=== PATIENT | female | born 1975 | race Hispanic/Latino ===

== ENCOUNTER 2019-10-01 21:10 | Emergency (ER) | payer OTHER, SELFPAY ==
--- NOTE | ~2019-10-01 | XR_ITS ---
EXAMINATION: XR chest 2V DATE: 10/02/2019 00:17 INDICATION: Chest pain. TECHNIQUE: Frontal and lateral views of the chest were obtained. COMPARISON: CT abdomen and pelvis 10/02/2019 FINDINGS: The chest demonstrates clear lungs without pneumonia, pleural effusion, or pneumothorax. Th e heart size is normal. IMPRESSION: 1. No acute cardiopulmonary disease. Reviewed, dictated and finalized at location A. SPRING STRIP INSPECTOR
--- NOTE | ~2019-10-01 | CT_ITS ---
EXAMINATION: CT abdomen pelvis w con DATE: 10/02/2019 00:15 INDICATION: Right upper quadrant abdominal pain. TECHNIQUE: Computed tomography (CT) of the abdomen and pelvis was performed with 100 mL Omnipaque 350 intravenous contrast. Automated exposure control and iterative reconstruction technique were employe d. The dose-length product was 280.91 mGy-cm. COMPARISON: None. FINDINGS: The visualized portions of the lung bases demonstrate minimal atelectasis on the left. No p leural effusion. The heart size is normal. No pericardial effusion. The liver and spleen are normal. There are gallstones in the gallbladder, which is normal in size. The pancreas, adrenal glands, and l eft kidney are normal. There is a 4 mm cyst in right kidney. There are no dilated loops of bowel. The appendix is normal. There are no pathologically enlarged lymph nodes. There is no free intraperitone al fluid. The bones are unremarkable. IMPRESSION: 1. Cholelithiasis. No evidence of acute cholecystitis. Reviewed, dictated and finalized at location A. SECURITY PROFESSIONAL
[2019-10-01 21:29] VITALS: BP 97/38; PULSE 60; RESP 18; TEMP 36.5; O2SAT 100
--- NOTE | 2019-10-01 22:12 | ED.ABDPAIN ---
HPI - Abdominal Pain General Chief Complaint: Abdominal Pain Stated Complaint: post-op abd pain Time Seen by Provider: 10/01/19 21:52 Source: patient Mode of arrival: wheelchair Limitations: language barrier History of Present Illness HPI narrative: This is a 44 year old female that presents to the ER for RUQ abdominal pain x 1 hour. Reports sudden onset RUQ sharp abdominal pain. Associated with nausea and vomiting. Reports the pain radiates into her chest. Reports she had a colonoscopy yesterday at [facility]. Denies fever, or dysuria. Related Data Allergies Allergy/AdvReac Type Severity Reaction Status Date / Time No Known Allergies Allergy Verified 08/04/19 21:34 Review of Systems Review of Systems: Narrative: CONSTITUTIONAL: Denies fever CARDIOVASCULAR: Reports chest pain RESPIRATORY: Denies dyspnea. GASTROINTESTINAL: Reports abdominal pain, nausea, vomiting GENITOURINARY: Denies dysuria or hematuria. All systems reviewed & are unremarkable except as noted in HPI and below PMFSH Surgical History Surgical History (Updated 10/01/19 @ 22:19 by Siri Mobley PA-C) History of colonoscopy Social History Social History (Updated 08/04/19 @ 21:07 by SHEILA Yi) Smoking status: Never smoker Alcohol intake: never Substance use: never Gender identity (if verbalized by the patient): Female Exam Narrative: Exam Narrative: GENERAL: Well-appearing, well-nourished, and in mild acute distress due to pain HEAD: Normocephalic, atraumatic. EYES: EOMI. CHEST: Clear to auscultation. No respiratory distress. No wheezes rales or rhonchi HEART: Regular rate and rhythm. No murmur heard. Normal peripheral pulses. ABDOMEN: Soft, nondistended, normal active bowel sounds. Tender to palpation of the RUQ, without guarding EXTREMITIES: Normal range of motion. No edema. SKIN: Warm, dry, no rash. NEURO: No focal deficits. Alert and oriented x3. PSYCH: Normal mood and affect Course Consultations Consultation #1: Spoke with Dr. Fitzgerald about patient and work-up will follow-up in clinic Date: 10/02/19 Time: :20 Vital Signs Vital signs: Vital Signs Temperature 97.7 F 10/01/19 21:29 Pulse Rate 60 10/01/19 21:29 Respiratory Rate 18 10/01/19 21:29 Blood Pressure 97/38 L 10/01/19 21:29 Pulse Oximetry 100 10/01/19 21:29 Temperature 98.2 F 10/02/19 00:48 Pulse Rate 71 10/02/19 02:08 Respiratory Rate 16 10/02/19 02:08 Blood Pressure 119/69 10/02/19 02:08 Pulse Oximetry 100 10/02/19 02:08 MDM - Abdominal Pain MDM Narrative Medical decision making narrative: Patient presents the emergency department for right upper quadrant abdominal pain associated with nausea and vomiting. She is afebrile and nontoxic-appearing. Reports relief after IV fluids, Zofran, Tylenol and morphine. CBC with leukocytosis to 14.2. She did just have surgery yesterday (colonoscopy). Hemoglobin seems to be around her baseline. Metabolic panel is without acute changes, other than mild elevation in blood glucose. Lactic acid is not elevated. UA without evidence of infection. CT abdomen pelvis shows distended gallbladder with multiple gallstones including several near the neck. But no gross gallbladder inflammation to suggest acute cholecystitis. Her liver enzymes are normal. She is afebrile. Patient feeling much better and agrees to outpatient follow-up. Spoke with Dr. Fitzgerald about patient and work-up will follow-up in clinic Lab Data Attestation: I reviewed the patient's lab results. Result diagrams: 10/01/19 22:21 10/01/19 22:21 Labs: Lab Results 10/01/19 10/01/19 10/01/19 Range/Units 22:21 22:21 22:21 WBC 14.2 H (4.5-10.0) K/mm3 RBC 4.43 (4.2-5.4) M/mm3 Hgb 9.4 L (12.0-15.0) g/dL Hct 30.5 L (37.0-47.0) % MCV 68.8 L (80-100) fl MCH 21.2 L (26-34) pg MCHC 30.8 L (32-36) g/dl RDW 17.4 H (11.5-14.5) % Plt Count 375 (150-375) k/mm3
--- NOTE | 2019-10-01 22:13 | ECG_ITS ---
Measurements Intervals [place] Rate: 69 P: 35 SD: 167 QRS: 3 QRSD: 90 T: 31 QT: 430 QTc: 463 Interpretive Statements SINUS RHYTHM INCOMPLETE RIGHT BUNDLE BRANCH BLOCK BORDERLINE T WAVE ABNORMALITY- ANTERIOR LEADS BORDERLINE ECG Electronically Signed On 10-02-2019 6:46:45 HEALTHCARE TRANSLATOR by Cesar Khan D.O.
[2019-10-01 22:29] LABS: Basophils Absolute Auto 0.1 K/mm3 (0.0-0.1); Basophils Percent Auto 0.4 % (0.2-1.2); Eosinophils Absolute Auto 0.1 K/mm3 (0-0.3); Hematocrit 30.5 % (37.0-47.0); Hemoglobin 9.4 g/dL (12.0-15.0); Immature Granulocyte Absolute 0.05 K/mm3 (0.00-0.031); Immature Granulocyte Percent A 0.4 % (0-0.5); Lymphocytes Absolute Auto 3.08 K/mm3 (0.9-3.2); Lymphocytes Percent Auto 21.7 % (18.3-44.2); Mean Corpuscular HGB Conc 30.8 g/dl (32-36); Mean Corpuscular Hemoglobin 21.2 pg (26-34); Mean Corpuscular Volume 68.8 fl (80-100); Mean Platelet Volume 10.4 fl (7.4-10.4); Monocytes Absolute Auto 0.8 K/mm3 (0.1-0.6); Monocytes Percent Auto 5.6 % (2.6-8.5); Neutrophils Absolute Auto 10.1 K/mm3 (1.3-6.7); Neutrophils Percent Auto 70.9 % (45.5-73.1); Platelet Count Result 375 k/mm3 (150-375); Red Blood Count 4.43 M/mm3 (4.2-5.4); Red Cell Distribution Width 17.4 % (11.5-14.5); White Blood Count 14.2 K/mm3 (4.5-10.0)
[2019-10-01 22:39] LABS: Lactic Acid Reflex 1.2 mmol/L (0.7-2.1)
[2019-10-01 22:41] LABS: Alanine Aminotransferase 18 U/L (4-35); Albumin Level 4.6 g/dL (3.5-5.1); Alkaline Phosphatase 80 U/L (38-126); Aspartate Amino Transferase 24 U/L (14-36); Bilirubin,Total 0.3 mg/dL (0.2-1.3); Blood Urea Nitrogen 11 mg/dL (7-17); Calcium 8.9 mg/dL (8.4-10.2); Carbon Dioxide 24 mmol/L (22-30); Chloride 101 mmol/L (98-107); Estimated CRCL calculation 97 ml/min; Estimated Glomerular Filt Rate > 60; Glucose 151 mg/dL (65-105); Lipase 173 U/L (23-300); Potassium 3.7 mmol/L (3.4-5.0); Sodium 139 mmol/L (137-145)
[2019-10-01 22:52] LABS: Troponin I < 0.012 ng/mL (0.000-0.034)
[2019-10-01] MEDS: MORPHINE SULFATE 4 MG/ML INJ IV PUSH (23:10)
[2019-10-01] MEDS: ONDANSETRON INJ 4 MG/2 ML VIAL IV PUSH (23:10)
[2019-10-01] MEDS: SODIUM CHLORIDE 0.9% IV 1,000 ML 999 ML IV CONT (23:11)
[2019-10-02 00:48] VITALS: BP 115/66; PULSE 73; RESP 14; TEMP 36.8; O2SAT 99
[2019-10-02 00:54] VITALS: BP 115/66; PULSE 71; RESP 20; O2SAT 100
[2019-10-02 01:24] LABS: Add Urine Microscopic? YES; Appearance Urine Clear (Clear); Bilirubin Urine Negative (Negative); Blood Urine 1+ (Negative); Color Urine Yellow (Yellow); Glucose Urine UA Negative (Negative); Ketones Urine 1+ mg/dL (Negative); Leukocyte Esterase Ur Negative LEU/UL (Negative); Mucus Urine Heavy /lpf; Nitrate Urine Negative (Negative); Protein Urine Negative (Negative); RBC Urine 0-2 /hpf (0-2); Squamous Epithelial Cell Urine Few /hpf (Few); Urobilinogen Urine Negative mg/dL (<2.0)
[2019-10-02 02:08] VITALS: BP 119/69; PULSE 71; RESP 16; O2SAT 100
== END 2019-10-02 01:45 | disposition home or self-care (01) ==
PROVIDERS: Physician Assistant; Emergency Provider Emergency Medicine
DX: K80.20 Calculus of gallbladder without cholecystitis without obstruction (principal)
CPT/HCPCS: 36415; 71046; 74177; 80053; 81001; 81025; 83605; 83690; 84484; 85025; 93005; 96374; 96375; 99284; J0131; J2270; J2405; J7030; Q9967

== ENCOUNTER 2019-10-02 15:41 | Inpatient (IN) | payer OTHER, SELFPAY ==
--- NOTE | ~2019-10-02 | US_ITS ---
US right upper quadrant INDICATION: Acute cholecystitis. PROCEDURE: Realtime right upper abdominal ultrasound. COMPARISON: No prior studies for comparison. FINDINGS: The pancreas is normal without focal mass or pancreatic ductal dilation. Liver echotexture is normal without focal mass or intrahepatic biliary dilatation. There is normal directional flow i n the portal vein. There are gallstones with gallbladder wall thickening. Common bile duct measures 5.5 mm. Positive s onographic Morales's sign. IMPRESSION: 1: Cholelithiasis with gallbladder wall thickening. Findings suspicious for cholecystitis. Correlate clinically. Reviewed, dictated and finalized at location B. ING TACKER IMPRESSION: 1: Cholelithiasis with gallbladder wall thickening. Findings suspicious for cho lecystitis. Correlate clinically.
[2019-10-02 16:46] VITALS: BP 121/54; PULSE 70; RESP 8; TEMP 37.4; O2SAT 100
[2019-10-02 16:57] LABS: Basophils Absolute Auto 0.1 K/mm3 (0.0-0.1); Basophils Percent Auto 0.4 % (0.2-1.2); Hematocrit 30.6 % (37.0-47.0); Hemoglobin 9.2 g/dL (12.0-15.0); Immature Granulocyte Absolute 0.04 K/mm3 (0.00-0.031); Immature Granulocyte Percent A 0.3 % (0-0.5); Lymphocytes Absolute Auto 1.23 K/mm3 (0.9-3.2); Mean Corpuscular HGB Conc 30.1 g/dl (32-36); Mean Corpuscular Hemoglobin 20.6 pg (26-34); Mean Corpuscular Volume 68.5 fl (80-100); Mean Platelet Volume 10.1 fl (7.4-10.4); Monocytes Absolute Auto 0.8 K/mm3 (0.1-0.6); Monocytes Percent Auto 5.6 % (2.6-8.5); Neutrophils Absolute Auto 11.6 K/mm3 (1.3-6.7); Neutrophils Percent Auto 84.7 % (45.5-73.1); Platelet Count Result 370 k/mm3 (150-375); Red Blood Count 4.47 M/mm3 (4.2-5.4); Red Cell Distribution Width 17.4 % (11.5-14.5); White Blood Count 13.7 K/mm3 (4.5-10.0)
[2019-10-02 17:10] LABS: Alanine Aminotransferase 20 U/L (4-35); Albumin Level 4.7 g/dL (3.5-5.1); Alkaline Phosphatase 69 U/L (38-126); Aspartate Amino Transferase 28 U/L (14-36); Bilirubin,Total 0.8 mg/dL (0.2-1.3); Blood Urea Nitrogen 10 mg/dL (7-17); Calcium 9.1 mg/dL (8.4-10.2); Carbon Dioxide 24 mmol/L (22-30); Chloride 104 mmol/L (98-107); Estimated Glomerular Filt Rate > 60; Glucose 136 mg/dL (65-105); Lipase 43 U/L (23-300); Potassium 3.9 mmol/L (3.4-5.0); Sodium 139 mmol/L (137-145)
--- NOTE | 2019-10-02 18:34 | ED.ABDPAIN ---
HPI - Abdominal Pain General Chief Complaint: Abdominal Pain Stated Complaint: abd pain Time Seen by Provider: 10/02/19 18:16 Source: family and RN notes reviewed Mode of arrival: other Limitations: no limitations History of Present Illness HPI narrative: Pt is a 44 y/o female who presents to the ED with c/o severe RUQ abdominal pain that began yesterday. Pt's spouse was at bedside and translated for the pt. Pt was here at [facility] yesterday and was d/c home at 2 AM this morning. Pt had an abdominal and pelvis CT that showed gallstones. Pt's spouse states that he thought the pt was going to be admitted, but the pt was recommended to follow up with her PCP. Pt's spouse states that the pt had an appointment with her PCP today at 4, but her pain became too severe. Pt denies any aggravating or any alleviating factors. Pt's spouse states that she is unable to keep anything down. He notes that her pain was alleviated yesterday when the pt received Morphine while in the ED. Pt also reports vomiting, but denies a fever. Denies fever, MD elicited complaint: abdominal pain Onset (ago): day(s) (1) Pain Consistency: constant Location: RUQ Severity: severe Exacerbating factors: nothing Relieving factors: nothing Associated symptoms: vomiting Related Data Allergies Allergy/AdvReac Type Severity Reaction Status Date / Time No Known Allergies Allergy Verified 10/02/19 18:46 Review of Systems Review of Systems: All systems reviewed & are unremarkable except as noted in HPI and below Constitutional: Constitutional: Denies fever(s) Gastrointestinal: Gastrointestinal: Reports abdominal pain (RUQ) and Reports vomiting PMFSH Past Medical History Medical History (Updated 10/02/19 @ 20:39 by Kp Amezcua MD) Patient denies significant medical history Surgical History Surgical History (Updated 10/01/19 @ 22:19 by Siri Mobley PA-C) History of colonoscopy Social History Social History (Updated 08/04/19 @ 21:07 by SHEILA Yi) Smoking status: Never smoker Alcohol intake: never Substance use: never Gender identity (if verbalized by the patient): Female Exam Const: General: in distress mild and ill appearing Nutritional Appearance: well nourished HENMT: Mouth: Yes lip normal and Yes moist mucous membranes Eyes: Conjunctivae: conjunctivae normal Pupils: Equal, round and reactive pupils present Resp: Effort & Inspection: normal respiratory effort Auscultation: clear to auscultation bilaterally Cardio: Rate: regular rate Rhythm: regular rhythm Heart sounds: no murmurs GI: GI Palp: Yes abdominal tenderness (RUQ) and Yes Soft to palpation Auscultation: normal bowel sounds Back/Spine/Pelvis: Back: other (Full ROM) Skin: General skin exam: normal color, dry skin and other (warm) Neuro: General: patient oriented x3 and other (alert) Speech: normal speech Extrem: General: full ROM Psych: Mental Status: mental status grossly normal Affect: normal affect Course Consultations Consultation #1: Discussed case with Dr. Cantor (General Surgery). Date: 10/02/19 Time: 18:57 Vital Signs Vital signs: Vital Signs Temperature 37.4 C 10/02/19 16:46 Pulse Rate 70 10/02/19 16:46 Respiratory Rate 8 L 10/02/19 16:46 Blood Pressure 121/54 L 10/02/19 16:46 Pulse Oximetry 100 10/02/19 16:46 Temperature 36.8 C 10/02/19 19:56 Pulse Rate 80 10/02/19 19:56 Respiratory Rate 18 10/02/19 19:56 Blood Pressure 118/74 10/02/19 19:56 Pulse Oximetry 100 10/02/19 19:56 MDM - Abdominal Pain Differential Diagnosis Differential diagnosis: Likely other (acute cholecystitis) Lab Data Attestation: I reviewed the patient's lab results. Result diagrams: 10/02/19 16:52 10/02/19 16:52 Labs: Lab Results 10/02/19 10/02/19 Range/Units 16:52 16:52 WBC 13.7 H (4.5-10.0) K/mm3 RBC 4.47 (4.2-5.4) M/mm3 Hgb 9.2 L (12.0-15.0) g/dL Hct 30.6
[2019-10-02] MEDS: MORPHINE SULFATE 4 MG/ML INJ IV PUSH ×2 (19:17→22:04)
[2019-10-02] MEDS: SODIUM CHLORIDE 0.9% IV 1,000 ML 999 ML IV CONT (19:18)
[2019-10-02 19:47] VITALS: TEMP 36.8
[2019-10-02 19:56] VITALS: BP 118/74; PULSE 80; RESP 18; TEMP 36.8; O2SAT 100
--- NOTE | 2019-10-02 21:50 | ADMGEN ---
This patient, Mahsa Edwards, was admitted to 2 Medical Room 261-01. Patient/family oriented to hospital policies and general routines including ID bracelet, bed and alarms, visiting hours, pain management, procedures, bathroom and other care routines, personal items, smoking policy, room service/diet, and visiting hours. Valuables list has been completed. Information on how to activate the Rapid Response Team has been discussed. Patient/Family are encouraged to report perceived risks to care and to ask questions if they do not understand what they are told or what they should do.
[2019-10-02 22:00] VITALS: BP 124/72; PULSE 88; RESP 21; TEMP 36.5; O2SAT 100; BMI 25.6
[2019-10-02] MEDS: LACTATED RINGERS 1,000 ML 125 ML IV CONT (22:02)
[2019-10-03] VITALS (12 sets, daily range): BP systolic 87–115; BP diastolic 44–66; PULSE 76–97; RESP 16–20; TEMP 36.3–37.6; O2SAT 95–100; BMI 25.6
[2019-10-03] MEDS: MORPHINE SULFATE 4 MG/ML INJ IV PUSH ×2 (01:46→08:08)
[2019-10-03] MEDS: LACTATED RINGERS 1,000 ML 125 ML IV CONT (06:09)
--- NOTE | 2019-10-03 12:03 | PM.IMHP ---
H&P: HPI History of Present Illness Chief complaint: acute cholecystitis Narrative: Mahsa Patterson is a 44 year old female who presented to the ED for the 2nd time in 24 hours with the same complaints. She has been experiencing RUQ pain for 3 days. She is having nausea and vomiting. When she went to the ED yesterday morning, she was found to have cholelithiasis on CT and had a slightly elevated WBC. She was sent home, but once her pain meds wore off, she began having severe pain again. This time, she couldn't keep any food or water down without vomiting. She has never had symptoms like this before. She did recently have a colonoscopy for anemia and was found to have several polyps but no other abnormalities. Review of Systems Review of Systems: All systems reviewed & are unremarkable except as noted in HPI and below Eyes: Eyes: Denies change in vision ENT: Denies hearing loss, Denies neck pain and Denies sore throat Cardiovascular: Cardiovascular: Denies chest pain and Denies dyspnea Respiratory: Respiratory: Denies cough, Denies dyspnea and Denies wheezing Gastrointestinal: Gastrointestinal: Reports as per HPI Genitourinary: Genitourinary: Denies hematuria and Denies dysuria Musculoskeletal: Musculoskeletal: Denies arthralgias, Denies joint swelling and Denies neck pain Allergic/Immunologic: Allergic/Immunologic: Denies wheezing PMFSH Past Medical History Medical History Patient denies significant medical history Surgical History Surgical History History of colonoscopy Social History Social History Smoking status: Never smoker Alcohol intake: never Substance use: never Gender identity (if verbalized by the patient): Female Spiritual care concerns: No Meds Home Medications and Allergies Home Medications Medication Instructions Recorded Confirmed Type No Home Medications 10/02/19 10/02/19 History Allergies Allergy/AdvReac Type Severity Reaction Status Date / Time No Known Allergies Allergy Verified 10/02/19 18:46 Vital Signs Vital Signs - 24 hr 10/02/19 16:46 10/02/19 19:47 10/02/19 19:56 Temperature 37.4 C 36.8 C 36.8 C Pulse Rate 70 80 Respiratory Rate 8 L 18 Blood Pressure 121/54 L 118/74 Pulse Oximetry 100 100 10/02/19 22:00 10/03/19 06:00 Temperature 36.5 C 36.9 C Pulse Rate 88 93 Respiratory Rate 21 H 20 Blood Pressure 124/72 111/66 Pulse Oximetry 100 98 Exam Const: General: alert; No acute distress Orientation/consciousness: patient oriented x3 Limitations: no limitations HENMT: Head: normocephalic and atraumatic Ears: hearing grossly normal bilaterally General nose exam: Normal external nose present and Normal nares present Mouth: Yes Normal oral and palatal mucosa present and Yes moist mucous membranes Eyes: General: appearance normal, both eyes and all related structures Conjunctivae: conjunctivae normal Sclera: sclerae normal Pupils: Equal, round and reactive pupils present EOM: EOMs intact bilaterally Neck: Neck: normal visual inspection, full ROM, no lymphadenopathy, supple and no JVD Lymphatic: no lymphadenopathy noted Chest: Chest palpation & inspection: normal inspection of the chest Resp: Effort & Inspection: normal respiratory effort and able to speak in complete sentences Auscultation: clear to auscultation bilaterally Percussion: percussion normal Cardio: Jugular venous distension: no JVD Rate: regular rate Rhythm: regular rhythm Heart sounds: S1 normal heart sound present and S2 normal heart sound present Peripheral pulses: Peripheral pulses 2+ throughout GI: Inspection: normal to inspection GI Palp: Yes abdominal tenderness, Yes Soft to palpation, Yes Tenderness to palpation present (GI) (RUQ), No Guarding due to palpation present (GI), No Ann
[2019-10-03] MEDS: LACTATED RINGERS 1,000 ML 30 ML IV CONT ×2 (17:05→19:29)
--- NOTE | 2019-10-03 17:22 | WPDANESEPPF ---
Anes - Initial Pre Proc Eval Procedure: Operation Date: 10/03/19 16:00 Proposed Procedures p Laparoscopic Cholecystectomy, Possible Open - Lorne Cantor DO Date/Time: 10/03/19 17:22 Surgeon: Lorne Cantor DO Pre Op Diagnosis: acute cholecystitis Patient Data Age: 44 Gender: F Height: 5 ft Weight: 59.6 kg Last Vital Signs Temp 37.6 C 10/03/19 16:45 Pulse 84 10/03/19 16:45 Resp 16 10/03/19 14:00 BP 115/65 10/03/19 16:45 Pulse Ox 95 10/03/19 16:45 Allergies Allergy/AdvReac Type Severity Reaction Status Date / Time No Known Allergies Allergy Verified 10/02/19 18:46 Home Medications Medication Instructions Recorded Confirmed Type No Home Medications 10/02/19 10/02/19 History Laboratory Tests 10/03/19 08:15 Blood Type B Positive Antibody Screen Negative Patient hx anesthesia problems: none Family hx anesthesia problems: none PMFSH Past Medical History Medical History Patient denies significant medical history Surgical History Surgical History History of colonoscopy Social History Social History Smoking status: Never smoker Alcohol intake: never Substance use: never Gender identity (if verbalized by the patient): Female Spiritual care concerns: No Anes - Eval Final PreProcedure Day of Procedure 10/03/19 17:22 Patient weight: normal Heart: regular rate and rhythm Lungs: clear to auscultation Airway: Mallampati scale class II Neurological: alert and oriented Last oral intake: >/= 8 hours ASA classification: II Emergent: yes Anesthetic plan: proceed Anesthesia type and monitoring: general ETT and standard monitoring Informed Consent: The patient's anesthetic plan and its attendant risks and benefits were discussed with the patient/family/POA. Questions were solicited and answers provided to the satisfaction of the patient/family/POA.
[2019-10-03] MEDS: BUPIVACAINE/EPINEPHRINE 0.5% 30 ML VIAL INFILTRATE (18:35)
--- NOTE | 2019-10-03 19:14 | PM.PROC ---
Procedure Note - Detailed Date of procedure: 10/03/19 Pre-op diagnosis: acute calculous cholecystitis Post-op diagnosis: same Procedure performed: Laparoscopic Cholecystectomy Description of procedure: Procedure as well as risks, benefits, and alternatives were discussed with patient. Written consent was obtained and placed in chart prior to procedure. The patient was brought back to surgical suite. Patient was placed in supine position on operating table. Time-out was done to confirm patient and procedure. Patient was then intubated by the anesthesia department. Abdomen was prepped and draped in sterile fashion using chlorhexidine prep. 0.5% bupivacaine with epinephrine was infiltrated at each site of incision. An 11 millimeter vertical incision was made at the inferior portion of the umbilicus using a 15 blade scalpel. Blunt dissection was carried down to the linea alba. The linea alba was then incised using a 15 blade scalpel. The peritoneum was then bluntly entered. An 11 millimeter trocar was inserted and cabon dioxied insuflation was used to create a pneumoperitoneum. The camera was inserted and the abdomen was inspected. The patient was placed in reverse Trendelenberg position and rotated slightly to the left. A 5 millimeter incision was made in the epigastric region, and a 5 millimeter trocar was inserted under direct visualization. Two 5 millimeter incisions were made in the right upper quadrant, and two 5 millimeter trocars were inserted under direct visualization. The gallbladder was identified and grasped at the fundus and retracted superiorly. It was then grasped at the infundibulum retracted laterally. Careful dissection around the neck of the gallbladder was performed using blunt dissection with a [place] grasper and hook electrocautery. The cystic duct was identified, and a window was created behind it. The cystic artery was also identified and a window was created behind it. The critical view of safety was identified, visualizing the cystic duct running directly into the neck of the gallbladder, and the cystic artery running directly into the wall of the gallbladder. A 5 millimeter clip spine nurse was then used to place 2 clips proximally and 1 clip distally on both the cystic duct and cystic artery. They were then both transected using endoscopic scissors. Once safely away from the augusto hepatitis, the gallbladder was dissected free from the liver bed using hook electrocautery. Hemostasis was achieved along the way. The gallbladder was removed completely and then removed through the umbilical port. The liver bed was then inspected. Hemostasis appeared adequate, and our clips appeared secure. The area was gently irrigated with sterile saline. No other abnormalities were seen. The patient was flattened out in bed, and 1 final inspection was made around the abdominal cavity. The ports were then removed under direct visualization, the camera was removed, and the pneumoperitoneum was released. The fascia of the umbilical incision was approximated using an 0 Vicryl [id number] suture. The skin of the incisions was approximated using 4-0 Monocryl subcuticular sutures. Exofin glue was applied on top. The patient was then awakened from anesthesia, extubated, and transferred to recovery. Anesthesia: GETA and local (0.5% bupivicaine with epinephrine) Surgeon: Lorne Cantor DO Estimated blood loss (mL): 20 Pathology: yes Complications: No immediate complications Condition: stable Disposition: floor Findings: This is a 44-year-old woman who presented to the emergency department last night with complaints of right upper quadrant pain with nausea and vomiting. She has been having constant pain for the past 3 days. She was in the ER several hours earlier and pain was controlled with some IV pain medications. She was discharged home, but once the pain meds wore off she continued to have constant pain and could not keep food or kenia
[2019-10-03] MEDS: LACTATED RINGERS 1,000 ML 100 ML IV CONT (21:10)
[2019-10-04 02:09] VITALS: BP 99/56; PULSE 72; RESP 18; TEMP 36.2; O2SAT 98
[2019-10-04 05:33] LABS: Hematocrit 24.5 % (37.0-47.0); Hemoglobin 7.5 g/dL (12.0-15.0); Mean Corpuscular HGB Conc 30.6 g/dl (32-36); Mean Corpuscular Hemoglobin 20.8 pg (26-34); Mean Corpuscular Volume 68.1 fl (80-100); Mean Platelet Volume 10.4 fl (7.4-10.4); Platelet Count Result 264 k/mm3 (150-375); Red Cell Distribution Width 17.3 % (11.5-14.5); White Blood Count 11.4 K/mm3 (4.5-10.0)
[2019-10-04 05:57] LABS: Blood Urea Nitrogen 6 mg/dL (7-17); Calcium 8.4 mg/dL (8.4-10.2); Carbon Dioxide 25 mmol/L (22-30); Chloride 106 mmol/L (98-107); Estimated CRCL calculation 96 ml/min; Estimated Glomerular Filt Rate > 60; Glucose 124 mg/dL (65-105); Potassium 3.9 mmol/L (3.4-5.0); Sodium 137 mmol/L (137-145)
[2019-10-04 06:51] VITALS: BP 106/51; PULSE 65; RESP 16; TEMP 36.3; O2SAT 97
--- NOTE | 2019-10-04 08:25 | WPDANESPN ---
Anes - Prog Note Post-Op Date/Time: 10/04/19 08:25 Cardiovascular status: normal Respiratory status: normal Airway patency: baseline Mental status: baseline Post-Op hydration status: normal Vital Signs: Last Vital Signs Temp 36.3 C L 10/04/19 06:51 Pulse 65 10/04/19 06:51 Resp 16 10/04/19 06:51 BP 106/51 L 10/04/19 06:51 Pulse Ox 97 10/04/19 06:51 I/O: Intake & Output 10/03/19 10/04/19 10/04/19 23:59 07:59 15:59 Intake Total 1150 350 Output Total 600 1350 Balance 550 -1000 Laboratory Tests 10/04/19 05:18 10/04/19 05:18 10/03/19 10/04/19 10/04/19 08:15 05:18 05:18 WBC 11.4 H RBC 3.60 L Hgb 7.5 L Hct 24.5 L MCV 68.1 L MCH 20.8 L MCHC 30.6 L RDW 17.3 H Plt Count 264 MPV 10.4 Sodium 137 Potassium 3.9 Chloride 106 Carbon Dioxide 25 BUN 6 L Creatinine 0.50 L Estim Creat Clear Calc 96 Estimated GFR > 60 Glucose 124 H Calcium 8.4 Blood Type B Positive Antibody Screen Negative Post-procedural complaints: none Patient Feedback: Patient satisfied with anesthetic care.
[2019-10-04 10:00] VITALS: BP 110/64; PULSE 70; RESP 16; TEMP 36.4; O2SAT 98
[2019-10-04 10:47] VITALS: O2SAT 96
[2019-10-04] MEDS: IBUPROFEN 600 MG TABLET PO (12:25)
--- NOTE | 2019-10-04 13:16 | PM.DS ---
DS: Diagnosis Admitting Diagnosis Admitting Diagnosis: Acute cholecystitis Discharge Diagnosis (1) Cholelithiasis and acute cholecystitis without obstruction: Code(s): K80.00 - Calculus of gallbladder with acute cholecystitis without obstruction Status: Acute (2) Iron (Fe) deficiency anemia: Code(s): D50.9 - Iron deficiency anemia, unspecified Status: Acute DS: Summary Time Spent with Patient Time attestation: Total time spent providing and/or coordinating discharge services: Patient presented to the emergency room on October 01 with severe right upper quadrant abdominal pain and vomiting. She had tenderness in the right upper quadrant as well. She had an elevated white count of over 13,000. her liver functions and lipase were normal. CT scan showed gallstones. A right upper quadrant ultrasound done the next morning showed gallstones with gallbladder wall thickening suggestive of acute cholecystitis. The patient was taken to surgery on 10/03/[address] Groves and underwent laparoscopic cholecystectomy. Her gallbladder was severely inflamed and nathan full of stones. She was continued on IV Zosyn. She had a colonoscopy just the day before her gallbladder symptoms started. They had found some polyps. She has iron deficiency anemia and it was thought the polyps were the source. Preoperatively her hemoglobin hematocrit were 9.2 and 30.6. On 10/04/2019 her hemoglobin was 7.5 and hematocrit 24.5. She had received considerable amount of IV fluid during her hospital stay. She is hemodynamically stable. She desires to go home today and is discharged now in good condition. She will go home on Augmentin, analgesics, and ferrous sulfate. Repeat CBC will be done on Sunday October 06, 2019. Exam Const: General: comfortable and no acute distress; No confusion Orientation/consciousness: patient oriented x3 and No confusion GI: GI Palp: Yes Soft to palpation, Yes Tenderness to palpation present (GI), No Guarding due to palpation present (GI) and No Rebound tenderness present Auscultation: normal bowel sounds Neuro: General: patient oriented x3, no focal motor deficits and No confusion Extrem: General: no calf tenderness and no edema Psych: Affect: normal affect Insight: Good insight present (Psych) Judgement: Good judgement present (Psych) DS: Data Data Completed and Pending Pending studies at discharge: Pending at discharge 10/03/19 18:27 Surgical [PTH] Routine Labs on day of discharge: Labs from last 24 hours 10/04/19 10/04/19 05:18 05:18 WBC 11.4 H RBC 3.60 L Hgb 7.5 L Hct 24.5 L MCV 68.1 L MCH 20.8 L MCHC 30.6 L RDW 17.3 H Plt Count 264 MPV 10.4 Sodium 137 Potassium 3.9 Chloride 106 Carbon Dioxide 25 BUN 6 L Creatinine 0.50 L Estim Creat Clear Calc 96 Estimated GFR > 60 Glucose 124 H Calcium 8.4 Discharge Plan Discharge Attending physician on discharge: Lorne Groves Discharging Clinician: Lam Fitzgerald Anticipated Discharge Date/Time: 10/04/19 13:12 Patient Disposition: Home, Self-Care Activity: other - see discharge instructions Diet: low fat and other - see discharge instructions Wound Care Instructions: other - see discharge instructions Discharge Instructions: DISCHARGE INSTRUCTION SHEET FOR HERNIA, GALLBLADDER AND APPENDIX SURGERIES DR. GROVES PATIENT TO TAKE HOME 1. May shower in 24 hours, no soaking in bath x 2weeks. 2. Call office for: Wound increasingly painful or bleeding Vomiting Fever of greater than 101 degrees 3. If no bowel movement for three days, take 1 oz. (30 ml) Milk of Magnesia or MiraLax 17g 1 to 2 times daily. 4. No heavy lifting > 10-15 pounds x 2 weeks for laparoscopic cholecystectomy or appendectomy. 5. No driving for 3 days or while taking narcotic pain medications. 6. Ice to surgical site for 48 hours (30 min on, then 30 min off).
[2019-10-04 14:00] VITALS: BP 110/64; PULSE 66; RESP 18; TEMP 36.3; O2SAT 99
== END 2019-10-04 14:30 | disposition home or self-care (01) | DRG 263 ==
LOC: ANHED 19:02 → ANH2MED 20:39
PROVIDERS: Admitting Provider Surgery; Emergency Provider Emergency Medicine; Visit Provider Surgery
PROC: 0FT44ZZ Resection of Gallbladder, Percutaneous Endoscopic Approach (ICD-10-PCS; CPT 47562; principal; 2019-10-03 16:00)
DX: K80.00 Calculus of gallbladder with acute cholecystitis without obstruction (principal); D50.9 Iron deficiency anemia, unspecified
CPT/HCPCS: 36415; 76705; 80048; 80053; 83690; 85025; 85027; 86850; 86900; 86901; 88304; 96365; 96375; 99285; A9270; J0131; J0330; J1100; J2250; J2270; J2405; J2543; J2704; J3010; J7030; J7120

== ENCOUNTER 2020-02-25 08:59 | Observation (INO) | payer OTHER, SELFPAY ==
[2020-02-25] VITALS (11 sets, daily range): BP systolic 93–134; BP diastolic 45–73; PULSE 18–84; RESP 12–99; TEMP 35.9–36.7; O2SAT 64–100; BMI 26.4
--- NOTE | 2020-02-25 09:07 | ADMGEN ---
This patient, Mahsa Patterson, was admitted to 2 Medical Room 261-01. Patient/family oriented to hospital policies and general routines including ID bracelet, bed and alarms, visiting hours, pain management, procedures, bathroom and other care routines, personal items, smoking policy, room service/diet, and visiting hours. Valuables list has been completed. Information on how to activate the Rapid Response Team has been discussed. Patient/Family are encouraged to report perceived risks to care and to ask questions if they do not understand what they are told or what they should do.
[2020-02-25] MEDS: LACTATED RINGERS 1,000 ML 100 ML IV CONT ×2 (10:14→18:13)
[2020-02-25] MEDS: ONDANSETRON INJ 4 MG/2 ML VIAL IV PUSH ×3 (10:16→19:36)
--- NOTE | 2020-02-25 10:58 | WPDANESEPPF ---
Anes - Initial Pre Proc Eval Procedure: Operation Date: 02/25/20 14:00 Proposed Procedures p Laparoscopic Appendectomy, possible open - Axel Sosa MD Date/Time: 02/25/20 10:58 Surgeon: Axel Sosa MD Pre Op Diagnosis: Acute uncomplicated appendicitis Patient Data Age: 45 Gender: F Height: Weight: Allergies Allergy/AdvReac Type Severity Reaction Status Date / Time No Known Allergies Allergy Verified 11/10/19 12:11 Patient hx anesthesia problems: none Family hx anesthesia problems: none PMFSH Past Medical History Medical History (Updated 02/25/20 @ 13:27 by Justin Barnes DO) Iron (Fe) deficiency anemia Migraine Surgical History Surgical History (Updated 02/25/20 @ 12:07 by SHEILA Guerra) History of colonoscopy History of laparoscopic cholecystectomy 10/03/2019 for acute calculous cholecystitis History of tubal ligation Family History Family History Other No significant family history Social History Social History Social History: The patient lives with her children. She is , but they live separately. She would like her , Ned Coker, to be her medical decision maker. Smoking status: Never smoker Second hand tobacco smoke exposure: No Alcohol intake: never Substance use: never Substance use type: does not use Living arrangements: with family Gender identity (if verbalized by the patient): Female Sexual Orientation (if Verbalized by the Patient): Straight or Heterosexual Spiritual care concerns: No Anes - Eval Final PreProcedure Day of Procedure 02/25/20 10:58 Patient weight: normal Heart: regular rate and rhythm Lungs: clear to auscultation and normal air movement Airway: Mallampati scale class III Neurological: alert and oriented Last oral intake: >/= 8 hours ASA classification: II Emergent: no Anesthetic plan: proceed Anesthesia type and monitoring: general ETT and standard monitoring Informed Consent: The patient's anesthetic plan and its attendant risks and benefits were discussed with the patient/family/POA. Questions were solicited and answers provided to the satisfaction of the patient/family/POA.
--- NOTE | 2020-02-25 11:17 | PM.IMHP ---
H&P: HPI History of Present Illness Chief complaint: Acute uncomplicated appendicitis Narrative: Mahsa Patterson is a 45 year old female who presented to [facility] for evaluation of right lower quadrant abdominal pain. She reports that her abdominal pain started suddenly 3 days ago and has progressively worsened. The pain remained localized in the right lower quadrant and had no alleviating factors. She developed nausea with one episode of vomiting yesterday and has had a poor appetite. She reports nearly no oral intake over the past 24 hours. Denies fevers or chills. The pain continued to worsen and became more severe last night, which is when she decided to present to the ED for further evaluation. Work-up in the ED showed leukocytosis with a white blood cell count of 12,700. CT scan showed dilated appendix up to 9.6 mm with some mild inflammatory stranding at the base, concerning for early acute appendicitis. No perforation or abscess formation noted. Also seen on the CT is gastric wall thickening that could be due to nondistention or gastritis. Labs were reviewed and unremarkable, other than mentioned. There was a negative urine test on [facility]'s records. Our service was contacted by the [facility] ER physician and the patient is now a direct admission to [facility] for surgical evaluation of the possible acute appendicitis. The patient is now being seen on the medical floor with the Souleymane dye jig operator present due to her being Maltese-speaking. She reports her abdominal pain has improved since being given the Morphine, but it is still present in the RLQ. Reports bloating and nausea. Denies a change in her bowel habits. Reports last bowel movement was yesterday afternoon and loose. Denies a history of upper endoscopy or gastritis. No chronic nausea or abdominal pain. Denies any upper abdominal pain. Denies hematuria, dysuria, or urinary frequency. No other complaints at this time. Review of Systems Constitutional: Constitutional: Reports as per HPI, Denies chills, Denies excessive sweating, Denies fatigue, Denies fever(s), Denies headache(s), Reports poor appetite and Denies weakness Eyes: Eyes: Denies change in vision and Denies loss of vision ENT: Reports Normal hearing present, Denies dizziness and Denies headache(s) Cardiovascular: Cardiovascular: Denies chest pain, Denies syncope, Denies leg edema, Denies lightheadedness, Denies radiating jaw, neck or arm pain and Denies dyspnea Respiratory: Respiratory: Denies cough, Denies dyspnea and Denies wheezing Gastrointestinal: Gastrointestinal: Reports as per HPI, Reports no additional gastrointestinal complaints, Reports abdominal pain (RLQ), Denies melena, Reports bloating, Denies hematochezia, Denies change in bowel habits, Denies diarrhea, Reports nausea and Reports vomiting Genitourinary: Genitourinary: Reports no additional female genitourinary complaints, Denies hematuria and Denies dysuria Musculoskeletal: Musculoskeletal: Denies deformity, Denies joint swelling, Denies radiating pain into limb and Denies tingling Integumentary/Breasts: Skin/Breast: Denies pruritus, Denies wounds and Denies jaundice Neurologic: Reports Normal hearing present, Denies confusion, Denies dizziness, Denies syncope, Denies headache(s), Denies loss of vision, Denies tingling, Denies tremor(s) and Denies weakness Psychiatric: Psychiatric: Denies anxiety, Denies confusion and Denies depression Endocrine: Endocrine: Denies cold intolerance, Denies excessive sweating, Denies fatigue and Denies heat intolerance Hematologic/Lymphatic: Hematologic/Lymphatic: Denies easy bleeding and Denies easy bruising PMFSH Past Medical History Medical History Iron (Fe) deficiency anemia Surgical History Surgical History (Updated 02/25/20 @ 12:07 by SHEILA Guerra) History of colonoscopy History of laparoscopic cholecystectomy 10/02
[2020-02-25] MEDS: LACTATED RINGERS 1,000 ML 30 ML IV CONT ×2 (13:20→16:14)
--- NOTE | 2020-02-25 14:24 | SUR.PREOP ---
0050-CONNECTION MADE VIA [employer] WITH [employer], #[id number] IN ORDER TO FOR NURSING STAFF AND ANESTHESIOLOGIST TO COMMUNICATE WITH PT.
[2020-02-25] MEDS: BUPIVACAINE/EPINEPHRINE 0.5% 10 ML VIAL INFILTRATE (15:44)
--- NOTE | 2020-02-25 16:10 | PM.PROC ---
Procedure Note - Detailed Date of procedure: 02/25/20 Pre-op diagnosis: Acute uncomplicated appendicitis Post-op diagnosis: same Procedure performed: Laparoscopic Appendectomy Description of procedure: The patient was seen in her hospital Room. The risks, benefits, complications, treatment options, and expected outcomes were discussed with the patient and/or family. The possibilities of reaction to medication, pulmonary aspiration, perforation of viscus, bleeding, recurrent infection, finding a normal appendix, the need for additional procedures, failure to diagnose a condition, and creating a complication requiring transfusion or operation were discussed. There was concurrence with the proposed plan and informed consent was obtained. The site of surgery was properly noted/marked. The patient was taken to Operating Room, and a time out was preformed which identified this as the proper patient, and the procedure verified as laparoscopic appendectomy, possible open. The patient was placed in the supine position and general anesthesia was induced, along with placement of orogastric tube, SCD hose, and a Rust catheter. The abdomen was prepped and draped in a sterile fashion. Because the patient had had previous surgeries the Escalante cannula technique was utilized. To do this I made an incision in the umbilical area vertically and carried this down to the midline fascia. Under direct vision the midline fascia was incised and the peritoneum entered under direct vision after placing 2 sutures of 0 Vicryl in the fascia on either side of midline. The Escalante cannula was then slid into place into the peritoneum under direct vision. The pneumoperitoneum was then established to steady pressure of 14 mm Hg. A 12 mm laparoscopic port was placed through a transverse suprapubic incision. An additional 5 mm cannula was then placed in the left upper quadrant of the abdomen under direct vision. A careful evaluation of the entire abdomen was carried out. was noted that the patient had omentum stuck to the underside of her previous umbilical incision site right where the Escalante was placed. Prior to further surgery we used the hook cautery to take this down the bowel was well away from the area and hemostasis was achieved with the cautery as we released the adhesions holding the omentum to the underside of the umbilical area. This allowed us more room to see an work. The patient was placed in Trendelenburg and left lateral decubitus position. The small intestines were retracted in the cephalad and left lateral direction away from the pelvis and right lower quadrant. The patient was found to have an enlarged and inflamed appendix that was extending into the right lower quadrant with the tip pointing toward the feet. There was no evidence of perforation. The appendix was carefully dissected. Once it was free a 45 mm ethicon endogastroentestinal stapler with a vascular load was placed across the mesoappendix. This was fired and hemostasis was checked along the staple line and appeared to be adequate. For this patient, this divided the entire mesoappendix and we were able to proceed immediately to stapling off the appendix at it's junction with the cecum. The appendix was then divided at its base using the same 45 mm stapler with a 3.5 mm bowel wall load. Minimal appendiceal stump was left in place. There was no evidence of bleeding, leakage, or complication after division of the appendix at its junction with the cecum.. The appendix was then placed in an endobag which had been brought through the 12 mm suprapubic port site. The appendix and the bag were then extracted through this larger port site in the suprapubic position. After closing the suprapubic site with the Santos cone I then watched as the gas escape from the abdomen we pushes much gas as possible just after removing the 5 mm port in the left upper quadrant. There was no bleeding from the underside of this port.
--- NOTE | 2020-02-25 16:17 | SUR.OPER ---
Urine outpute 400 ml intraoperatively
[2020-02-25] MEDS: SCOPOLAMINE 1.5 MG PATCH TRANSDERM (17:00)
[2020-02-25] MEDS: ACETAMINOPHEN 500 MG TABLET PO (20:19)
[2020-02-25] MEDS: SENNA/DOCUSATE SODIUM TABLET 2 TAB PO (20:21)
[2020-02-26] VITALS: BP 100/52; PULSE 94; RESP 18; TEMP 36.5; O2SAT 99
[2020-02-26 04:00] VITALS: BP 101/48; PULSE 89; RESP 18; TEMP 36.1; O2SAT 99
[2020-02-26 05:39] LABS: Hematocrit 29.2 % (37.0-47.0); Mean Corpuscular HGB Conc 30.8 g/dl (32-36); Mean Corpuscular Hemoglobin 22.2 pg (26-34); Mean Corpuscular Volume 71.9 fl (80-100); Mean Platelet Volume 10.4 fl (7.4-10.4); Platelet Count Result 314 k/mm3 (150-375); Red Blood Count 4.06 M/mm3 (4.2-5.4); Red Cell Distribution Width 15.4 % (11.5-14.5); White Blood Count 12.4 K/mm3 (4.5-10.0)
[2020-02-26 05:52] LABS: Anion Gap 11.1 mmol/L (7-16); Blood Urea Nitrogen 6 mg/dL (7-17); Calcium 8.6 mg/dL (8.4-10.2); Carbon Dioxide 26 mmol/L (22-30); Chloride 105 mmol/L (98-107); Estimated CRCL calculation 96 ml/min; Estimated Glomerular Filt Rate > 60; Glucose 151 mg/dL (65-105); Potassium 4.1 mmol/L (3.4-5.0); Sodium 138 mmol/L (137-145)
[2020-02-26] MEDS: ACETAMINOPHEN 500 MG TABLET PO (06:33)
[2020-02-26] MEDS: ENOXAPARIN 40 MG/0.4 ML SYRINGE SUB-Q (08:32)
[2020-02-26 10:00] VITALS: BP 102/56; PULSE 71; RESP 18; TEMP 36.7; O2SAT 99
--- NOTE | 2020-02-26 10:00 | WPDANESPN ---
Anes - Prog Note Post-Op Date/Time: 02/26/20 10:00 Cardiovascular status: normal Respiratory status: normal Airway patency: baseline Mental status: baseline Post-Op hydration status: normal Vital Signs: Last Vital Signs Temp 36.1 C L 02/26/20 04:00 Pulse 89 02/26/20 04:00 Resp 18 02/26/20 04:00 BP 101/48 L 02/26/20 04:00 Pulse Ox 99 02/26/20 04:00 I/O: Intake & Output 02/25/20 02/26/20 02/26/20 23:59 07:59 15:59 Intake Total 600 100 240 Output Total 400 650 Balance 200 -550 240 Laboratory Tests 02/26/20 05:12 02/26/20 05:12 02/26/20 02/26/20 05:12 05:12 WBC 12.4 H RBC 4.06 L Hgb 9.0 L Hct 29.2 L MCV 71.9 L MCH 22.2 L MCHC 30.8 L RDW 15.4 H Plt Count 314 MPV 10.4 Sodium 138 Potassium 4.1 Chloride 105 Carbon Dioxide 26 Anion Gap 11.1 BUN 6 L Creatinine 0.50 L Estim Creat Clear Calc 96 Estimated GFR > 60 Glucose 151 H Calcium 8.6 Post-procedural complaints: none Patient Feedback: Patient satisfied with anesthetic care.
[2020-02-26 10:10] VITALS: O2SAT 97
[2020-02-26 11:13] VITALS: BP 102/56; PULSE 71; RESP 18; TEMP 36.7; O2SAT 99
[2020-02-26 14:00] VITALS: BP 101/51; PULSE 71; RESP 18; TEMP 37.1; O2SAT 100
--- NOTE | 2020-02-26 15:10 | PM.DS ---
DS: Admitting Diagnosis Admitting Diagnosis Admitting Diagnosis: Acute appendicitis with localized peritonitis, without perforation or gangrene Iron deficiency anemia DS: Discharge Diagnosis Discharge Diagnosis (1) Acute appendicitis with localized peritonitis, without perforation or abscess: Code(s): K35.30 - Acute appendicitis with localized peritonitis, without perforation or gangrene Status: Acute Assessment and Plan: 02/25/[address] Sosa (2) Iron (Fe) deficiency anemia: Code(s): D50.9 - Iron deficiency anemia, unspecified Status: Acute Assessment and Plan: Will send her home on iron supplementation and repeat CBC In 1 month. Patient instructed to establish PCP for further outpatient work-up and follow her anemia. DS: Summary Hospital Course Reason for hospitalization: Mahsa Patterson is a 45 year old female who was a direct admission from [facility] ER for acute appendicitis. She had presented to the ER for right lower quadrant abdominal pain x 3 days. She had associated nausea and vomiting. No fever or chills. Work-up in the ED showed leukocytosis with a white blood cell count of 12,700. CT scan showed dilated appendix up to 9.6 mm with some mild inflammatory stranding at the base, concerning for early acute appendicitis. No perforation or abscess formation noted. Also seen on the CT is gastric wall thickening that could be due to nondistention or gastritis. She was admitted to our service, started on IV antibiotics, made NPO, and started on IV fluids and analgesics. Hospital Course: The patient was admitted and evaluated by our service. Patient was taken for laparoscopic appendectomy by Dr. Sosa on 02/25/20. There were no findings of perforation intra-operatively. (See full operative report for details) The patient was recovered and was transferred to the medical floor. She was slowly advanced on her diet and is tolerating this well today. The patient has a history of anemia and was anemic on admission. Today her hemoglobin remained stable at 9.0. The patient is not taking any iron supplementation and apparently does not have an established PCP. She had previously had a work-up for her anemia including a colonoscopy about 1 week prior to her cholecystectomy earlier this year. We will start the patient on iron supplements on discharge and instructed her to establish a PCP. Will repeat labs in 1 month. When I saw the patient today, I had used the [employer] compressor battery pellets (Elise #[id number]) due to the patient being Burmese speaking. She denies nausea, vomiting, fever, or chills. Reports no bowel movement since surgery. Does report having some post-op abdominal pain and points at her suprapubic incision as the area for her pain. She reports that the pain is the worst after getting back into bed from going to the bathroom, and reports this as a burning pain. She has taken [place] for this pain and states that it improves the pain and makes it tolerable. Activity is tolerable. Denies any issues with urination or dysuria. Voiding well post-op. No other complaints at this time. She is stable for discharge. I discussed discharge care instructions with the patient and medications she will be sent home on. All questions answered. Will make f/u appt in 2 weeks. Status at Discharge Functional status at discharge: independent ambulation Overall status at discharge: patient is progressing back to baseline Time Spent with Patient Time attestation: Total time spent providing and/or coordinating discharge services: Time spent: Greater than 30 minutes Exam Const: General: comfortable, no acute distress, alert and awake Orientation/consciousness: patient oriented x3 Resp: Effort & Inspection: normal respiratory effort and able to speak in complete sentences Auscultation: clear to auscultation bilaterally Cardio: Rate: regular rate Rhythm: regular rhythm Heart sounds: S1 normal heart sound pre
--- NOTE | 2020-02-26 16:17 | PC.NURSE ---
PATIENT WAS WOLOF SPEAKING ONLY, DISCHARGE INSTRUCTION REVIEWED WITH ADITYA BONILLA THAT SPEAKS WELSH. HE VERBALIZED UNDERSTANDING
== END 2020-02-26 16:18 | disposition home or self-care (01) ==
PROVIDERS: Admitting Provider Surgery; Visit Provider Surgery
PROC: 0DTJ4ZZ Resection of Appendix, Percutaneous Endoscopic Approach (ICD-10-PCS; CPT 44970; principal; 2020-02-25 14:00)
DX: K35.30 Acute appendicitis with localized peritonitis, without perforation or gangrene (principal); D50.9 Iron deficiency anemia, unspecified
CPT/HCPCS: 44970; 36415; 80048; 85027; 88304; 96361; 96372; 96374; 96375; 96376; A9270; G0378; G0379; J1100; J1650; J2250; J2405; J2704; J3010; J7120

== ENCOUNTER 2020-03-10 10:01 | Outpatient (CLI) | payer OTHER, SELFPAY ==
[2020-03-10 10:53] LABS: Basophils Absolute Auto 0.1 K/mm3 (0.0-0.1); Basophils Percent Auto 0.9 % (0.2-1.2); Eosinophils Absolute Auto 0.4 K/mm3 (0-0.3); Eosinophils Percent Auto 4.2 % (0-4.4); Immature Granulocyte Absolute 0.03 K/mm3 (0.00-0.031); Immature Granulocyte Percent A 0.3 % (0-0.5); Lymphocytes Absolute Auto 2.57 K/mm3 (0.9-3.2); Lymphocytes Percent Auto 26.1 % (18.3-44.2); Mean Corpuscular HGB Conc 31.3 g/dl (32-36); Mean Corpuscular Hemoglobin 22.5 pg (26-34); Mean Corpuscular Volume 72.1 fl (80-100); Mean Platelet Volume 10.7 fl (7.4-10.4); Monocytes Absolute Auto 0.5 K/mm3 (0.1-0.6); Monocytes Percent Auto 5.5 % (2.6-8.5); Neutrophils Absolute Auto 6.2 K/mm3 (1.3-6.7); Platelet Count Result 363 k/mm3 (150-375); Red Blood Count 4.44 M/mm3 (4.2-5.4); Red Cell Distribution Width 17.3 % (11.5-14.5); White Blood Count 9.8 K/mm3 (4.5-10.0)
[2020-03-10 11:06] LABS: Anion Gap 8 mmol/L (8-16); Blood Urea Nitrogen 12 mg/dL (7-17); Carbon Dioxide 27 mmol/L (22-30); Chloride 104 mmol/L (98-107); Estimated Glomerular Filt Rate > 60; Glucose 131 mg/dL (65-105); Sodium 139 mmol/L (137-145)
== END 2020-03-10 10:02 | disposition home or self-care (01) ==
PROVIDERS: PCP Family Medicine; Visit Provider Surgery
DX: K35.30 Acute appendicitis with localized peritonitis, without perforation or gangrene (principal)
CPT/HCPCS: 36415; 80048; 85025

== ENCOUNTER 2021-08-12 20:28 | Emergency (ER) | payer OTHER, SELFPAY ==
[2021-08-12 20:32] VITALS: BP 125/73; PULSE 66; RESP 18; TEMP 36.1; O2SAT 98
--- NOTE | 2021-08-12 22:06 | ED.GENADULT ---
HPI - General Adult General Chief complaint: Ear Stated complaint: Left Ear Pain Time Seen by Provider: 08/12/21 22:02 History of Present Illness HPI narrative: Patient is a 46-year-old female who presents to emergency department chief complaint of left ear pain. The patient states she has pressure in her sinuses and reports that she started having pain in her left ear. The patient states pain is worse with movement reports also she has pain in the anterior cervical lymph nodes of her neck. Patient denies cough denies fever denies purulent drainage out of her nose. Related Data Allergies Allergy/AdvReac Type Severity Reaction Status Date / Time No Known Allergies Allergy Verified 08/12/21 20:35 Review of Systems Review of Systems: A 10 system review of systems was completed on the patient and is negative except for what is stated in the HPI. Nursing and ancillary documentation was reviewed. [facility] Past Medical History Medical History (Updated 08/12/21 @ 22:09 by Luis Enrique Kwan MD) Iron (Fe) deficiency anemia Migraine Surgical History Surgical History History of colonoscopy History of laparoscopic cholecystectomy 10/03/2019 for acute calculous cholecystitis History of tubal ligation Family History Family History Other No significant family history Social History Social History Social History: The patient lives with her children. She is , but they live separately. She would like her , Ned Coker, to be her medical decision maker. Smoking status: Never smoker Second hand tobacco smoke exposure: No Alcohol intake: never Substance use: never Substance use type: does not use Gender identity (if verbalized by the patient): Female Sexual Orientation (if Verbalized by the Patient): Straight or Heterosexual Spiritual care concerns: No Exam Narrative: GENERAL: Well-appearing, well-nourished, and in no acute distress. HEAD: Normocephalic, atraumatic. EYES: PERRLA and EOMI. ENT: Nares clear, no rhinorrhea or epistaxis. Mucous membranes moist. There is slight erythema of the left tympanic membrane, there is tenderness to palpation in the left frontal sinus NECK: Supple. There is cervical lymphadenopathy of the left side of the neck CHEST: Clear to auscultation. No respiratory distress. HEART: Regular rate and rhythm. No murmur heard. Normal peripheral pulses. ABDOMEN: Soft, nontender, nondistended, normal active bowel sounds. EXTREMITIES: Normal range of motion. No edema. SKIN: Warm, dry, no rash. NEURO: No focal deficits. Alert and oriented x3. PSYCH: Normal mood and affect. Course Vital Signs Vital signs: Vital Signs Temperature 36.1 C L 08/12/21 20:32 Pulse Rate 66 08/12/21 20:32 Respiratory Rate 18 08/12/21 20:32 Blood Pressure 125/73 08/12/21 20:32 Pulse Oximetry 98 08/12/21 20:32 Temperature 36.1 C L 08/12/21 20:32 Pulse Rate 66 08/12/21 20:32 Respiratory Rate 18 08/12/21 20:32 Blood Pressure 125/73 08/12/21 20:32 Pulse Oximetry 98 08/12/21 20:32 Medical Decision Making Vital Signs Vital Signs: Vital Signs Temperature 36.1 C L 08/12/21 20:32 Pulse Rate 66 08/12/21 20:32 Respiratory Rate 18 08/12/21 20:32 Blood Pressure 125/73 08/12/21 20:32 Pulse Oximetry 98 08/12/21 20:32 Temperature 36.1 C L 08/12/21 20:32 Pulse Rate 66 08/12/21 20:32 Respiratory Rate 18 08/12/21 20:32 Blood Pressure 125/73 08/12/21 20:32 Pulse Oximetry 98 08/12/21 20:32 Discharge Plan Discharge Clinical Impression: Otitis media, Sinusitis, Anterior cervical adenopathy Patient Disposition: Home, Self-Care Condition: Stable Instructions: Antibiotic Form, Sinusitis (ED), Lymphadenopathy (ED), Ear Infection (ED)
[2021-08-12] MEDS: AMOXICILLIN/CLAVULANATE K 875-125 MG TAB 1 TABLET PO (22:09)
== END 2021-08-12 22:19 | disposition home or self-care (01) ==
LOC: ANHED 22:18
PROVIDERS: Emergency Provider Emergency Medicine; PCP Physician Assistant
DX: H66.92 Otitis media, unspecified, left ear (principal); J32.9 Chronic sinusitis, unspecified; R59.9 Enlarged lymph nodes, unspecified; D50.9 Iron deficiency anemia, unspecified
CPT/HCPCS: 99283; A9270

== ENCOUNTER 2021-08-14 15:46 | Emergency (ER) | payer OTHER, SELFPAY ==
--- NOTE | ~2021-08-14 | CT_ITS ---
EXAMINATION: CT brain wo con EXAM DATE: 08/14/2021 16:33 INDICATION: left sided facial paresthesia, facial drooping. TECHNIQUE: Spiral CT of the head was performed without contrast. Axial, coronal and sagittal images were reviewed. The dose-length product (DLP) for this examination was 605.33 mGy-cm. The exposure w as tailored according to patient size, and iterative reconstruction (ASIR) was used as additional dos e reduction technique. There are no prior studies for comparison. FINDINGS: There is no acute intraparenchymal hemorrhage. No evidence of intraparenchymal brain mass lesion. No evidence of acute infarction. There is no mass effect or midline shift. The ventricles are normal in size. There are no extra-axial collections. There are no acute calvarial fractures. T he orbits are unremarkable. Soft tissue is unremarkable. The visualized sinuses and mastoid air osiel ls are well aerated. IMPRESSION: 1. Unremarkable head CT examination. Reviewed, dictated and finalized at location [facility]
[2021-08-14 15:51] VITALS: BP 133/67; PULSE 64; RESP 16; TEMP 36.1; O2SAT 100
[2021-08-14 16:03] VITALS: BP 126/88; PULSE 71; RESP 18; TEMP 36.6; O2SAT 100
[2021-08-14 16:18] LABS: Basophils Percent Auto 0.5 % (0.2-1.2); Eosinophils Absolute Auto 0.2 K/mm3 (0-0.3); Eosinophils Percent Auto 2.8 % (0-4.4); Hematocrit 37.2 % (37.0-47.0); Hemoglobin 12.1 g/dL (12.0-15.0); Immature Granulocyte Absolute 0.02 K/mm3 (0.00-0.031); Immature Granulocyte Percent A 0.3 % (0-0.5); Lymphocytes Absolute Auto 2.69 K/mm3 (0.9-3.2); Lymphocytes Percent Auto 36.2 % (18.3-44.2); Mean Corpuscular HGB Conc 32.5 g/dl (32-36); Mean Corpuscular Hemoglobin 27.1 pg (26-34); Mean Corpuscular Volume 83.4 fl (80-100); Mean Platelet Volume 10.6 fl (7.4-10.4); Monocytes Absolute Auto 0.6 K/mm3 (0.1-0.6); Monocytes Percent Auto 7.7 % (2.6-8.5); Neutrophils Absolute Auto 3.9 K/mm3 (1.3-6.7); Neutrophils Percent Auto 52.5 % (45.5-73.1); Platelet Count Result 241 k/mm3 (150-375); Red Blood Count 4.46 M/mm3 (4.2-5.4); Red Cell Distribution Width 15.4 % (11.5-14.5); White Blood Count 7.4 K/mm3 (4.5-10.0)
[2021-08-14 16:28] LABS: Alanine Aminotransferase 51 U/L (4-35); Albumin Level 4.6 g/dL (3.5-5.1); Alkaline Phosphatase 100 U/L (38-126); Anion Gap 8 mmol/L (8-16); Aspartate Amino Transferase 42 U/L (14-36); Bilirubin,Total 0.5 mg/dL (0.2-1.3); Blood Urea Nitrogen 13 mg/dL (7-17); Calcium 8.8 mg/dL (8.4-10.2); Carbon Dioxide 26 mmol/L (22-30); Chloride 105 mmol/L (98-107); Estimated CRCL calculation 74 ml/min; Estimated Glomerular Filt Rate > 60; Glucose 131 mg/dL (65-110); Potassium 3.9 mmol/L (3.4-5.0); Sodium 139 mmol/L (137-145)
--- NOTE | 2021-08-14 16:31 | ED.NEUROSD ---
HPI - Neuro Symptoms/Deficit General Chief Complaint: Neuro Symptoms/Deficit Stated Complaint: ear pain, left sided face numbness Time Seen by Provider: 08/14/21 16:03 Source: patient Mode of arrival: ambulatory Limitations: language barrier (her family member is interpreting which she prefers) History of Present Illness HPI Narrative: This is a 46 year old female that presents to the ER for left sided facial weakness noted since yesterday. Reports 2 days ago she started to have left ear pain. Yesterday she started to note tingling on the left side of her face. Now the left side of her face is weak. She is unable to close her left eye fully or raise her left eyebrow. She denies any other focal numbness or weakness. Denies vision changes, or vomiting. Related Data Allergies Allergy/AdvReac Type Severity Reaction Status Date / Time No Known Allergies Allergy Verified 08/12/21 20:35 Review of Systems Review of Systems: CONSTITUTIONAL: Denies fever EYES: Denies visual changes GASTROINTESTINAL: Denies vomiting NEUROLOGIC: Reports numbness and weakness. Denies headache All systems reviewed & are unremarkable except as noted in HPI and below PMFSH Past Medical History Medical History (Updated 08/14/21 @ 16:55 by Siri Mobley PA-C) Iron (Fe) deficiency anemia Migraine Surgical History Surgical History History of colonoscopy History of laparoscopic cholecystectomy 10/03/2019 for acute calculous cholecystitis History of tubal ligation Family History Family History Other No significant family history Social History Social History Social History: The patient lives with her children. She is , but they live separately. She would like her , Ned Coker, to be her medical decision maker. Smoking status: Never smoker Second hand tobacco smoke exposure: No Alcohol intake: never Substance use: never Substance use type: does not use Gender identity (if verbalized by the patient): Female Sexual Orientation (if Verbalized by the Patient): Straight or Heterosexual Spiritual care concerns: No Exam Narrative: GENERAL: Well-appearing, well-nourished, and in no acute distress. HEAD: Normocephalic, atraumatic. EYES: PERRLA and EOMI. ENT: Nares clear, no rhinorrhea or epistaxis. Mucous membranes moist. Oropharynx without tonsillar hypertrophy exudate or other lesions. Bilateral TMs pearly alberto non-bulging NECK: Supple. No adenopathy or masses. CHEST: Clear to auscultation. No respiratory distress. No wheezes rales or rhonchi HEART: Regular rate and rhythm. No murmur heard. Normal peripheral pulses. EXTREMITIES: Normal range of motion. No edema. Strength equal in bilateral upper and lower extremities (5/5) SKIN: Warm, dry, no rash. NEURO: Alert and oriented x3. Left sided facial nerve palsy, otherwise cranial nerves are intact. Patient unable to raise left eyebrow PSYCH: Normal mood and affect Course Consultations Consultation #1: poke with patient's primary about workup. Patient is scheduled for a follow up next week. Date: 08/14/21 Time: 17:31 Vital Signs Vital signs: Vital Signs Temperature 97 F L 08/14/21 15:51 Pulse Rate 64 08/14/21 15:51 Respiratory Rate 16 08/14/21 15:51 Blood Pressure 133/67 08/14/21 15:51 Pulse Oximetry 100 08/14/21 15:51 Temperature 97.9 F 08/14/21 16:03 Pulse Rate 80 08/14/21 17:05 Respiratory Rate 16 08/14/21 17:05 Blood Pressure 126/88 08/14/21 16:03 Pulse Oximetry 98 08/14/21 17:05 MDM - Neuro Symptoms/Deficit MDM Narrative Medical decision making narrative: Patient presents to the emergency department for symptoms consistent with Martinez's palsy. Exam is also consistent with this. Her vitals are stable. CBC and metabolic panel without garrick
[2021-08-14 16:32] LABS: Partial Thromboplastin Time 26.8 SECONDS (22.3-36.8); Prothrombin Time 12.7 Seconds (11.1-14.7)
[2021-08-14 16:40] LABS: Troponin I < 0.012 ng/mL (0.000-0.034)
[2021-08-14 17:05] VITALS: PULSE 80; RESP 16; O2SAT 98
[2021-08-14 17:34] VITALS: BP 133/61; PULSE 81; RESP 16; O2SAT 99
== END 2021-08-14 17:58 | disposition home or self-care (01) ==
PROVIDERS: Physician Assistant; Emergency Provider Emergency Medicine; PCP Physician Assistant
DX: G51.0 Bell's palsy (principal); D50.9 Iron deficiency anemia, unspecified
CPT/HCPCS: 36415; 70450; 80053; 84484; 85025; 85610; 85730; 99284

== ENCOUNTER 2021-09-06 19:27 | Emergency (ER) | payer OTHER, SELFPAY ==
[2021-09-06 20:19] VITALS: BP 149/84; PULSE 87; RESP 16; TEMP 36.9; O2SAT 100
[2021-09-06 21:54] VITALS: BP 130/82; PULSE 80; RESP 22; O2SAT 100
--- NOTE | 2021-09-06 22:07 | ED.GENADULT ---
HPI - General Adult General Chief complaint: Nausea/Vomiting/Diarrhea Stated complaint: n/v and headache Time Seen by Provider: 09/06/21 21:37 Source: patient and RN notes reviewed History of Present Illness HPI narrative: Patient is a 46 y/o female complaining of bilateral frontal and occipital headache starting about 11:00 AM this morning. She rates her pain as 10/10. She describes her pain as sharp. There is no alleviating or exacerbating factor. She took Advil, which did not help. She also has nausea and vomiting. She was seen here on 08/14 for Martinez's palsy. Of note, patient is non Hebrew speaking and provided translation during interview. Related Data Allergies Allergy/AdvReac Type Severity Reaction Status Date / Time No Known Allergies Allergy Verified 09/06/21 21:54 Review of Systems Constitutional: Constitutional: Denies chills, Denies fever(s), Reports headache(s) and Denies weakness Eyes: Eyes: Denies blurry vision ENT: Reports headache(s) and Denies neck pain Cardiovascular: Cardiovascular: Denies chest pain and Denies dyspnea Respiratory: Respiratory: Denies cough and Denies dyspnea Gastrointestinal: Gastrointestinal: Denies abdominal pain, Denies diarrhea, Denies nausea and Denies vomiting Genitourinary: Genitourinary: Denies hematuria and Denies dysuria Musculoskeletal: Musculoskeletal: Denies back pain and Denies neck pain Neurologic: Reports headache(s) and Denies weakness PMF Past Medical History Medical History (Updated 09/07/21 @ 00:51 by Chrissie Chandler MD) Iron (Fe) deficiency anemia Migraine Surgical History Surgical History History of colonoscopy History of laparoscopic cholecystectomy 10/03/2019 for acute calculous cholecystitis History of tubal ligation Family History Family History Other No significant family history Social History Social History Social History: The patient lives with her children. She is , but they live separately. She would like her , Ned Coker, to be her medical decision maker. Smoking status: Never smoker Second hand tobacco smoke exposure: No Alcohol intake: never Substance use: never Substance use type: does not use Gender identity (if verbalized by the patient): Female Sexual Orientation (if Verbalized by the Patient): Straight or Heterosexual Spiritual care concerns: No Exam Const: General: no acute distress and well developed Orientation/consciousness: oriented to person, oriented to place, oriented to time and patient oriented x3 HENMT: Head: normocephalic Ears: external ears normal General nose exam: Normal external nose present Eyes: General: appearance normal, both eyes and all related structures Conjunctivae: conjunctivae normal Neck: Neck: normal visual inspection and full ROM Chest: Chest palpation & inspection: normal inspection of the chest and no tenderness Resp: Effort & Inspection: normal respiratory effort Auscultation: clear to auscultation bilaterally Cardio: Rate: regular rate Rhythm: regular rhythm GI: GI Palp: No abdominal tenderness and Yes Soft to palpation Skin: General skin exam: normal color and turgor normal Neuro: General: oriented to person, oriented to place, oriented to time and patient oriented x3 Cranial nerves: Yes CN's II-XII intact bilaterally and No facial symmetry (left facial droop consistent with Martinez's Palsy) Cognition (Neuro): normal cognition Speech: normal speech Motor exam (neuro): 5/5 motor strength present throughout Sensory Exam: normal sensation Coordination: [id number] test normal and [id number] test normal Extrem: General: normal to inspection, full ROM and no pedal edema Psych: Appearance: grossly normal Mental Status: mental status grossly normal
[2021-09-06 22:30] LABS: Basophils Percent Auto 0.5 % (0.2-1.2); Eosinophils Percent Auto 0.1 % (0-4.4); Hematocrit 36.5 % (37.0-47.0); Hemoglobin 11.8 g/dL (12.0-15.0); Immature Granulocyte Absolute 0.03 K/mm3 (0.00-0.031); Immature Granulocyte Percent A 0.4 % (0-0.5); Lymphocytes Absolute Auto 1.01 K/mm3 (0.9-3.2); Lymphocytes Percent Auto 12.3 % (18.3-44.2); Mean Corpuscular HGB Conc 32.3 g/dl (32-36); Mean Corpuscular Hemoglobin 27.6 pg (26-34); Mean Corpuscular Volume 85.5 fl (80-100); Mean Platelet Volume 10.5 fl (7.4-10.4); Monocytes Absolute Auto 0.2 K/mm3 (0.1-0.6); Monocytes Percent Auto 2.9 % (2.6-8.5); Neutrophils Absolute Auto 6.9 K/mm3 (1.3-6.7); Neutrophils Percent Auto 83.8 % (45.5-73.1); Platelet Count Result 215 k/mm3 (150-375); Red Blood Count 4.27 M/mm3 (4.2-5.4); Red Cell Distribution Width 16.4 % (11.5-14.5); White Blood Count 8.2 K/mm3 (4.5-10.0)
[2021-09-06 22:54] LABS: Alanine Aminotransferase 40 U/L (4-35); Albumin Level 4.5 g/dL (3.5-5.1); Alkaline Phosphatase 84 U/L (38-126); Anion Gap 11 mmol/L (8-16); Aspartate Amino Transferase 42 U/L (14-36); Bilirubin,Total 0.6 mg/dL (0.2-1.3); Blood Urea Nitrogen 10 mg/dL (7-17); Calcium 9.2 mg/dL (8.4-10.2); Carbon Dioxide 24 mmol/L (22-30); Chloride 105 mmol/L (98-107); Estimated CRCL calculation 96 ml/min; Estimated Glomerular Filt Rate > 60; Glucose 144 mg/dL (65-110); Potassium 3.9 mmol/L (3.4-5.0); Sodium 140 mmol/L (137-145)
--- NOTE | 2021-09-06 23:21 | PC.NURSE ---
Unsuccessful attempt to provide urine sample. Pt refusing straight catheter at this time. Urine cup at bedside.
[2021-09-06] MEDS: diphenhydrAMINE HCl INJ 50 MG/ML VIAL IV PUSH (23:24)
[2021-09-06] MEDS: METOCLOPRAMIDE HCL INJ 10 MG/2 ML VIAL IV PUSH (23:27)
[2021-09-06] MEDS: SODIUM CHLORIDE 0.9% IV 1,000 ML 999 ML IV CONT (23:31)
[2021-09-06] MEDS: KETOROLAC 30 MG/ML VIAL (*BKC) IV PUSH (23:32)
[2021-09-06 23:33] VITALS: BP 129/81; PULSE 91; RESP 22; O2SAT 100
[2021-09-07 00:30] VITALS: BP 106/69; PULSE 81; RESP 19; O2SAT 100
--- NOTE | 2021-09-07 00:34 | PC.NURSE ---
Pt still unable to urinate at this time. Still refusing straight catheterization. Urine cup remains at bedside.
[2021-09-07 01:05] VITALS: BP 113/65; PULSE 85; RESP 20; O2SAT 99
== END 2021-09-07 01:10 | disposition home or self-care (01) ==
PROVIDERS: Emergency Provider Emergency Medicine
DX: R51.9 Headache, unspecified (principal); D50.9 Iron deficiency anemia, unspecified
CPT/HCPCS: 36415; 80053; 85025; 96361; 96374; 96375; 99284; J1200; J1885; J2765; J7030